=== PATIENT | female | born 1950 | race Caucasian/White ===

== ENCOUNTER → 2016-09-17 | Outpatient (CLI) | payer MEDICARE, BC, OTHER ==
[~2016-09-17] MED LIST: ACETAMINOPHEN PO; ACTOS PO; AEROBID7 GM; ALBUTEROL PO; ALBUTEROL17 GM INH; ALBUTEROL2.5 MG/0.5 NEB; ALLERGY25 MG PO; AMOXICILLIN PO; ASPIRIN PO; ASPIRIN81 M1 PO; ASPIRIN81 M2 PO; ASPIRINBUFF PO; AVANDIA PO; BACTRIM DS TABL1 TA2 PO; BAYER CHEWABLE81 MG PO; BECLOMETHASONE; BECONASE AQ25 GM; BECONASE-AQ25 ML; BENADRYL PO; BENADRYL25 MG PO; BENZONATATE PO; CALCIUM + D 6001 TA1 PO; CALCIUM + VITAM1 TAB PO; CALCIUM 500 + D1 TAB PO; CALCIUM 600 + D1 TA1 PO; CALTRATE PO; CARAFATE PO; CARBAMAZEPINE PO; CARBATROL200 MG PO; CELEBREX PO; CERTAGEN PO; COMBIVENT; COMBIVENT INH14.7 G1 IH; COMBIVENT INH14.7 GM; COMBIVENT INH14.7 GM INH; COMBIVENT U/D3 M2 INH; COMBIVENT U/D3 ML INH; COREG PO; COUMADIN PO; DARVOCET-N 1001 TAB PO; DIPHENHYDRAMINE PO; DIPHENHYDRAMINE50 M1 PO; DIPHENHYDRAMINE50 M2 PO; DUONEB 2.5-0.5 M3 ML NEB; EPIPEN; EPIPEN JR.0.15 MG/0. INJ; EPIPEN JR0.15 MG/01 IJ; EPIPEN0.3 MG/0.1 IM; EPIPEN0.3 MG/0.3 IM; FLEXERIL PO; FLEXERIL10 MG PO; FLOVENT7.9 GM INH; FUROSEMIDE40 MG PO; GLIPIZIDE10 MG PO; GLUCAGON HCL1 MG; GLUCOPHAGE XR500 MG PO; GLUCOPHAGE500 MG PO; GLUCOTROL PO; IBUPROFEN PO; IMDUR PO; IMDUR-ER30 M1 PO; IMIPRAMINE HCL50 MG PO; IMIPRAMINE PAM100 MG; IMIPRAMINE PAM100 MG PO; IMIPRAMINE PAM150 MG PO; IMITREX PO; IMITREX5 MG MC; ISORDIL PO; ISOSORBIDE DINI30 MG PO; ISOSORBIDE DINI40 MG PO; ISOSORBIDE MON PO; JANUVIA PO; JANUVIA100 MG PO; JANUVIA25 MG PO; K-DUR10 MEQ PO; KCL PO; KEPPRA PO; KEPPRA1000 MG PO; KEPPRA500 M1 DOB; KEPPRA750 MG PO; LASIX PO; LASIX20 MG PO; LEVAQUIN PO; LEVEMIR100 UNITS/ SUBQ; LISINOPRIL PO; LISINOPRIL2.5 MG PO; LORTAB 7.5-5001 TAB PO; MAGNESIUM CHLORIDE PO; MAGNESIUM200 MG PO; MAGNESIUM250 M1 PO; MAGNESIUM500 MG PO; MEDROL PO; MELATONIN1 MG PO; METFORMIN HCL1000 M1 PO; METFORMIN HCL500 M1 PO; METFORMIN PO; MICRO-K PO; MILK OF MAGNESIA PO; MIRALAX17 GM PO; MONTELUKAST SOD10 MG PO; MUCINEX DM1 TAB.SR . PO; MUCINEX PO; MUCINEX SINUS-1 EAC2 PO; MULTI-DAY VITAM1 TAB PO; MULTI-VITAMIN1 EAC1 PO; MULTIPLE VITAMI1 T11 PO; NABUMETONE PO; NEURONTIN600 MG PO; NITRO-DUR TOP; NITRODUR TD; NITROGLYCERIN4.1 GM TL; NITROGLYGERIN0.4 MG SL; NITROGYLCERIN SL; NITROGYLCERIN TOP; NITROLINGUAL12 G1 TL; NOVOLOG100 U/M2; NOVOLOG100 U/ML; NOVOLOG100 UNITS/; OMEPRAZOLE20 M1 PO; OMEPRAZOLE20 M2 PO; OXYCODON-ACETA1 EACH PO; OXYCODONE HCL5 MG PO; OXYGEN; OXYGEN 2 LITERS; OXYGEN NS; PANTOPRAZOLE SO40 MG; PATIENT'S PHARMACY; PERCOCET 10/3251 TAB PO; PERCOCET 7.5/321 TAB PO; PERCOCET 7.5/501 TA1; PERCOCET 7.5/501 TA1 PO; PERCOCET 71 UDTAB 7. PO; PERCOCET PO; PHENERGAN W/CO120 ML PO; PHENOBARB PO; PHENOBARBITAL100 MG PO; PHENOBARBITAL97.2 MG PO; POTASSIUM CHLO10 MEQ PO; POTASSIUM GLUCO99 MG PO; POTASSIUM99 M1; POTASSIUM99 M1 PO; PRAVACHOL PO; PRAVASTATIN SOD40 MG PO; PREDNISONE PO; PRILOSEC PO; PRILOSEC20 M1 PO; PRILOSEC40 MG PO; PROTONIX PO; QVAR; QVAR7.3 G1 IH; QVAR7.3 G1 INH; QVAR7.3 GM INH; RANEXA PO; RANEXA1000 MG PO; RANEXA500 MG DOB; RANEXA500 MG PO; RANITIDINE HCL150 M1 PO; REGLAN PO; REGLAN5 MG PO; SENNA CONCENTR8.6 MG; SEREVENT D50 MCG/DIS PO; SINGULAIR PO; SLOW-MAG64 MG PO; SUMATRIPTAN SU100 MG PO; SYMBICORT INH; TEGRETOL PO; TEGRETOL XR; TEGRETOL XR PO; TOFRANIL PO; TOPROL XL PO; TRESIBA FL100 UNIT/1; ULTRAM PO; VICODIN 5/500 T1 TAB PO; VIMPAT100 MG PO; VIMPAT50 MG PO; VITAMIN C PO; VITAMIN C250 M1 PO; VITAMIN C500 M1 PO; VITAMIN C500 MG/15 PO; VITAMIN D 4001 UDTAB PO; VITAMIN D1000 UNI1 PO; VOLTAREN75 MG PO; ZANAFLEX2 M2 PO; ZESTRIL2.5 MG PO; ZITHROMAX PO; ZOCOR PO; [UNRECOGNIZED DRUG - OTHER]; [UNRECOGNIZED DRUG - OTHER] PO
--- NOTE | ~2016-09-17 | MR164 ---
[facility] A Service of [facility] & [facility] / [facility] RADIOLOGY TEXT RESULTS PATIENT: TERRI SHEPARD LOCATION: [facility] : 50 UNIT #: [id number] AGE: [address]: Benigno Cox MD SEX: F ORDER DR: [id number] [facility] [address] [facility]. [place], [place] [address] [id number] O MR#: [id number] Acc #: [id number] NAME: TERRI SHEPARD : 1950 SEX: F STUDY DATE/TIME: 09/17/2016 16:34 UNIT: [facility] ROOM: STUDY DESCRIPTION: MR Shoulder Wo Contrast Lt Attending Physician: Benigno Cox M.D. Referring Physician: Benigno Cox M.D. Ordering Physician: Benigno Cox M.D. Primary Care Physician: Phuong Christian M.D. MRI CENTER REPORT This report is preliminary unless electronic signature is present. EXAM MRI of the left shoulder without contrast. HISTORY 66-year-old female states rotator cuff tear 14 years ago. Patient managed well until about 3 weeks ago, woke up with left shoulder pain, decreased range of motion and pain and weakness. No specific injury. COMPARISON Left shoulder films, 12/26/2013. TECHNIQUE Multiplanar, multiecho imaging performed of the left shoulder utilizing a high field magnet dedicated protocol. FINDINGS Examination demonstrates extensive susceptibility artifact particularly about the acromion and lateral shoulder related to prior acromioplasty and rotator cuff repair. Morphologic changes of the distal clavicle also suggests prior distal clavicular resection. Marrow signal from the proximal humerus, glenoid appears normal. Joint fluid within normal limits. There is mild supraspinatus and infraspinatus tendinopathy without definitive tear. No muscle atrophy or edema. The teres minor and subscapularis tendons appear intact. Superior labrum biceps anchor and long tendon of the biceps appears intact. Anterior and posterior labrum unremarkable. The deltoid and extraarticular soft tissues appear normal. Please note that there are no sagittal T2 weighted sequences. According to the technologist note, patient was unable to complete the exam due to pain. Patient was on supplemental oxygen. [facility]. [facility] A Service of [facility] / [facility] RADIOLOGY TEXT RESULTS PATIENT: TERRI SHEPARD LOCATION: [facility] : 50 UNIT #: [id number] AGE: [address]: Benigno Cox MD SEX: F ORDER DR: IMPRESSION 1. Postsurgical changes from apparent acromioplasty and distal clavicular resection and prior rotator cuff repair. 2. No convincing evidence of recurrent rotator cuff tear though signal changes within the distal supraspinatus and infraspinatus compatible with underlying tendinopathy. This is most prominent involving the distal insertion of the infraspinatus and suggests at least moderate grade tendinopathy. Dictated by... Eloisa Live M.D. THIS IS AN ELECTRONICALLY VERIFIED REPORT Eloisa Live M.D. at 09/18/2016 5:32 PM Daniele TD: 09/18/2016 15:44 JOB #: [id number] MRI CENTER REPORT Page 1 of 1 COPY
== END | disposition home or self-care (01) ==
LOC: CMRI 15:48
DX: M25.512 Pain in left shoulder (principal); Z98.890 Other specified postprocedural states
CPT/HCPCS: 73221

== ENCOUNTER → 2016-10-03 | Day surgery (SDC) | payer MEDICARE, BC, OTHER ==
--- NOTE | ~2016-10-03 | OR ---
Unit #: [id number] #: [id number] Patient: TERRI SHEPARD [id number] [address] [address] [id number] O MR#: [id number] NAME: TERRI SHEPARD. ROOM: Date of Procedure: 10/03/2016 Admission Date: 10/03/2016 Surgeon: Scott Mcdaniel M.D. : 1950 Attending Physician: Scott Mcdaniel M.D. Primary Care Physician: Phuong Christian M.D. OPERATIVE REPORT PROCEDURE PERFORMED Esophagogastroduodenoscopy with biopsies. INDICATIONS FOR PROCEDURE History of Cota esophagus, esophagitis, and chronic GERD symptoms, undergoing evaluation with upper endoscopy. MEDICATIONS Monitored anesthesia. POSTOPERATIVE FINDINGS 1. 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 Biopsies taken from 4 quadrants at 24, 27, and 30 cm lopez. 2. Significant esophagitis and ulcers, upper part of the Cota esophagus consistent with LA grade B esophagitis. 3. Large hiatal hernia. 4. Normal stomach. 5. Normal duodenum and distal duodenum. PLAN Continue with PPI therapy. Continue with reflux precautions. Repeat upper endoscopy in 2 years. DESCRIPTION OF PROCEDURE The patient was explained of the procedure, risks, and benefits along with risks and benefits of anesthesia. She was brought to the endoscopy room. Propofol anesthesia was given. Bite block was placed. The scope was passed down the mouth into the esophagus, stomach, duodenum, and distal duodenum. Findings as described. Biopsies taken. Gently, I pulled it out of the patient's mouth. She tolerated it well. Dictated by... Ayanna Jama/robin TD: 10/03/2016 14:22 JOB #: [id number] Unit #: [id number] #: [id number] Patient: TERRI SHEPARD OPERATIVE REPORT Page 1 of 1 X Scott Mcdaniel MD PROCEDURE OPERATIVE NOTE
== END | disposition home or self-care (01) ==
LOC: COPS 10:06
DX: K22.70 Barrett's esophagus without dysplasia (principal); K20.9 Esophagitis, unspecified; K21.9 Gastro-esophageal reflux disease without esophagitis; K44.9 Diaphragmatic hernia without obstruction or gangrene; E11.9 Type 2 diabetes mellitus without complications; F17.210 Nicotine dependence, cigarettes, uncomplicated; J43.9 Emphysema, unspecified; I50.9 Heart failure, unspecified; I25.2 Old myocardial infarction; I25.10 Atherosclerotic heart disease of native coronary artery without angina pectoris; Z86.010 Personal history of colon polyps; Z99.81 Dependence on supplemental oxygen; Z88.8 Allergy status to other drugs, medicaments and biological substances; Z88.1 Allergy status to other antibiotic agents; Z88.4 Allergy status to anesthetic agent; Z90.49 Acquired absence of other specified parts of digestive tract; Z90.710 Acquired absence of both cervix and uterus; Z98.890 Other specified postprocedural states; Z79.82 Long term (current) use of aspirin; Z79.4 Long term (current) use of insulin; Z79.84 Long term (current) use of oral hypoglycemic drugs; Z79.899 Other long term (current) drug therapy
CPT/HCPCS: 82947; 88305